=== PATIENT | female | born 1940 | race Caucasian/White ===

== ENCOUNTER 2023-11-25 17:20 | Inpatient (IN) | payer OTHER, SELFPAY ==
[2023-11-25] VITALS (14 sets, daily range): BP systolic 92–145; BP diastolic 64–97; BMI 21.3
--- NOTE | 2023-11-25 14:45 | ED.GENMED ---
History of Present Illness
General
Chief Complaint: Fainting/Passed Out
Source: patient
Exam Limitations: none
Time Seen by Provider: 11/25/23 14:29
History of Present Illness
History of Present Illness:
83-year-old female woke up on the bathroom floor 2 nights ago, about 36 hours ago. She had been sleeping prior. She does not recall the event. She was diagnosed with COVID 4 days ago. Mostly just with runny nose. No fever no chest pain no
shortness of breath. Patient hit her face. She cannot get into see the regular physician because of her COVID. Initially she was evaluated by PA who stated everything was okay. She then saw some the nurse today who was concerned about her head
injury on Eliquis and stated she should be evaluated. She complains of some mild facial pain. She has no neck pain she has mild nausea she has no chest pain or shortness of breath. She has a history of PAF. She states she will go into it 2-3
times per year. She like this episode after she started while coming to the ER. She does not think she was in atrial fibrillation when this event occurred. She has had no further episodes of syncope. Her blood pressure was running low yesterday.
She has not taken her Eliquis for the last 36 hours.
Review of Systems
Review of Systems
All Other Systems: Not applicable
Constitutional: Denies fever
Respiratory: Reports no symptoms
Cardiac: Denies chest pain
ABD/GI: Reports no symptoms
Phy Exam
Physical Exam
Physical Exam:
GENERAL: Alert and oriented in no apparent distress. Initially was walking around the room changing.
EYE: Orbits normal. Ecchymosis to the bridge of the nose and suborbital bilaterally. Orbits themselves are normal.
NECK: Supple, nontender
ENT: Pharynx without erythema
CARDIAC: Irregular irregular. Tachycardic
LUNGS: Clear breath sounds,normal
ABDOMEN: Soft, without focal tenderness or distention
NEUROLOGICAL: Alert and oriented , grossly non-focal
SKIN: Warm and dry, no rash or lesion, no discoloration, skin intact.
MUSCULOSKELETAL: No edema,no deformity.Good color
PSYCH: Normal and appropriate interaction.
Course
Orders/Labs/Results
Orders:
Orders
11/25/23 14:05
ECG [Electrocardiogram (*1)] Urgent
Reason for Study: Syncope
EKG- Treatment ONCE
11/25/23 14:44
CT Cervical Spine W/o Iv Contr Urgent
Comment:
Reason For Exam: trauma
CT Facial Bones W/o Iv Contras Urgent
Comment:
Reason For Exam: trauma
CT Head W/o Iv Contrast Urgent
Comment:
Reason For Exam: trauma
Cardiac Monitoring- Treatment ONCE
0.9% Sodium Chloride 250 ml [Nss] 250 ml IV BOLUS
11/25/23 14:45
Cardiac Monitoring- Treatment ONCE
11/25/23 14:48
Basic Metabolic Panel Urgent
Complete Blood Count/With Diff Urgent
11/25/23 16:29
Diltiazem 125 mg/125 ml Nss [Cardizem] 125 mg in 125 ml IV NOW
Initial dose in mg/hr, then titrate:: 5
Titrate to keep:: Heart rate 80-100 bpm
Titrate by mg/hr:: 5 mg/hr
Frequency of titrations (minutes):: 15
Maximum dose in mg/hr:: 15
Diltiazem HCl [Cardizem] 5 mg IV NOW STA
11/25/23 16:49
Admit/Transfer Patient As Directed
Co-Sign Provider:
Level of Care: Inpatient admission
Assign to:: IMU- Intermediate Care
Physician / Group: rickie
Diagnosis: afib rvr
Reason for Hospitalization: afib rvr
Expected length of stay greater than two midnights?: Yes
ELOS- Estimated Length of Stay in days: 2
I certify the patient meets the requirements for IP care: Yes
PRN Pain Medication Management As Directed
May give lesser potent ordered pain med per pt: Yes
preference::
Protocol:: Medication orders for pain may be administered in a
manner that supports deferring to patient preference
when the pt is:
- Requesting an ordered lesser potent pain medication.
Least to most potent pain medications are defined
as: acetaminophen < NSAID < tramadol < opioids
(morphine, oxycodone, hydromorphone).
- Requesting a lesser dose of the same medication IF
ORDERED.
- Requesting a less intrusive route of administration
if both routes are prescribed by the provider (PO <
IV).
11/25/23 16:50
Code Status As Directed
Resuscitation Status: Full Code
Abnormal Lab Results
11/25/23
14:48
WBC 3.5 L 10^3/uL
(4.8-10.8)
MPV 10.9 H fL
(7.4-10.4)
Monocytes % 11.5 H %
(1.7-9.3)
BUN 22 H mg/dl
(7-17)
Glucose 107 H mg/dl
(70-99)
11/25/23 14:48
11/25/23 14:48
Vital Signs
Initial and Last Documented VS:
Initial Vital Signs
Temp Pulse Resp BP Pulse Ox
98.7 F 131 20 145/97 98
11/25/23 13:59 11/25/23 13:59 11/25/23 13:59 11/25/23 13:59 11/25/23 13:59
Last Documented Vital Signs
Temp Pulse Resp BP Pulse Ox
98.7 F 137 17 128/72 95
11/25/23 13:59 11/25/23 17:45 11/25/23 17:45 11/25/23 17:00 11/25/23 16:30
MDM/Problems Addressed
Differential Diagnosis Includes:
From a trauma standpoint patient is clinically stable. We will CT the head facial bones and cervical spine. From a COVID standpoint she is stable. She has no shortness of breath no hypoxia no severe weakness. As for the syncopal episode.
Unclear etiology. Patient does not recall the event. She was running low blood pressures yesterday. However she feels her atrial fibrillation likely happened today. We will give fluids. Possible rate control
*Pulse Oximetry
Patient hypoxic: no
*EKG
Interpreted by ED Provider?: Yes
Interpretation: abnormal
Comparison EKG: no comparison EKG present
Heart Rate: 136
Rate: tachycardiac
Rhythm: a-fib
[place]: normal axis
Interval: normal interval
QRS Pattern: right bundle branch block
Ischemia: non-specific ST changes
*Plastics Design Engineer Interpretation
Rate: tachycardiac
Interpretation: abnormal
Heart Rate: 140
Rhythm: a-fib
*Critical Care Note
Total Time (30-74mins, 75-104mins- exclusive of procedures): 15
Update Note
Update Note:
Syncope/A-fib RVR/COVID. Warrants admission rate control cardiac monitoring
ED Attending Note
-
Portions of this chart may have been created with voice recognition software.� Occasional wrong word or��sound alike� substitutions may have occurred due to the inherent limitations of voice recognition software.
Discharge Plan
Departure
Patient Disposition: Admit
Date of Disposition: 11/25/23
Time of Disposition: 16:31
Presentation/result/management discussed w/ accepting MD/DO: Hospitalist
Discharge Problem:
Syncope, Facial trauma/nasal fracture, Atrial fibrillation/RVR, COVID infection
Interventions
Interventions:
*Risk Screen - Suicide Last Done: 11/25/23 14:48
*General Assessment Last Done: 11/25/23 14:48
*Neglect/Abuse Screening Last Done: 11/25/23 14:48
*ED COVID-19 Vaccine History Last Done: 11/25/23 14:48
ED- Cardiac Assessment Last Done: 11/25/23 14:48
ED- Neurological Assessment Last Done: 11/25/23 14:48
[2023-11-25] MEDS: NSS 250 IV (15:01)
[2023-11-25 15:12] LABS: % Basophils 0.3 % (0-2); % Eosinophils 0.9 % (0-6); % Immature Granulocytes 0.3 % (0-0.5); % Monocytes 11.5 % (1.7-9.3); Absolute Lymphocytes 1.2 10^3/uL (1.2-3.4); Absolute Monocytes 0.4 10^3/uL (0.1-0.6); Absolute Neutrophils 1.9 10^3/uL (1.4-6.5); Hematocrit 37.4 % (37.0-47.0); Mean Corp Hgb Conc. 34.8 g/dL (33.0-37.0); Mean Corpuscular Hgb 29.6 pg (27.0-31.0); Mean Corpuscular Volume 85.2 fL (81.0-99.0); Mean Platelet Volume 10.9 fL (7.4-10.4); Nucleated Red Blood Cells % 0 %; Platelet Count 145 10^3/uL (130-400); Red Blood Cell Count 4.39 10^6/uL (4.20-5.40); Red Cell Dist. Width 13.2 % (11.5-14.5); White Blood Cell Count 3.5 10^3/uL (4.8-10.8)
[2023-11-25 16:10] LABS: Blood Urea Nitrogen 22 mg/dl (7-17); Calcium 9.7 mg/dl (8.4-10.2); Carbon Dioxide 24 mmol/L (22-30); Chloride 103 mmol/L (98-107); Estimated Creatinine Clearance 47 ml/min; Glucose 107 mg/dl (70-99); Potassium 4.2 mmol/L (3.5-5.1); Sodium 141 mmol/L (135-145); eGFR > 60.00
[2023-11-25] MEDS: CARDIZEM 5 MG IV (16:40)
[2023-11-25] MEDS: CARDIZEM 125 IV (16:40)
--- NOTE | 2023-11-25 16:51 | HPS.HSE ---
Family Physician
-
Family Physician: Dony Templeton
Chief Complaint
-
syncope
History of Present Illness
83-year-old female past medical history of osteoporosis, hypercholesteremia, prediabetes, paroxysmal atrial fibrillation on anticoagulation, presenting with syncopal episode. She woke up in the bathroom floor 2 nights ago. She has dizziness
currently. She does not recall the event but hit her face. She was diagnosed with COVID 4 days ago after she was having runny nose. She denies any shortness of breath, chest pain, cough, fevers or chills. She has had decreased oral intake over
the past 4 days.
She saw a nurse today who was concerned about her head injury while on Eliquis and told her to come to the emergency room. Patient does complain of some mild facial pain. She denies neck pain.
She denies nausea vomiting or diarrhea.
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 Mancia at [place].
She drinks alcohol few times a week. She denies smoking.
Medical History
Past Medical History
Past Medical History: Reports Other ( osteoporosis, hypercholesteremia, prediabetes, paroxysmal atrial fibrillation on anticoagulation)
Past Surgical History: Reports Orthopedic
Social History
Tobacco: Non-smoker
Alcohol: Occasional
Drug: None
Family History
Family History: Not pertinent
Allergies / Home Medications
Allergies reflects when Allergies were last updated in [facility].
Home Medications with original date entered in [facility]
Allergy/Medication List:
Allergies
Allergy/AdvReac Type Severity Reaction Status Date / Time
No Known Allergies Allergy Unverified 11/25/23 14:03
Review of Systems
-
History Source: Patient
A 12 point ROS was completed and negative except as noted: Yes
Constitutional: Reports No Symptoms
EENT: Reports See HPI
Respiratory: Reports No Symptoms
Cardiac: Reports No Symptoms
Abdomen/GI: Reports No Symptoms
: Reports No Symptoms
Musculoskeletal: Reports No Symptoms
Skin: Reports No Symptoms
Neurological: Reports No Symptoms
Endocrine: Reports No Symptoms
Hematologic/Lymphatic: Reports No Symptoms
Psych: Reports No Symptoms
Physical Exam
Vital Signs
Vital Signs
Temp Pulse Resp BP Pulse Ox
98.7 F 135 20 111/90 95
11/25/23 13:59 11/25/23 16:40 11/25/23 15:34 11/25/23 16:40 11/25/23 15:15
Physical Exam
General: Well Developed, Well Nourished and No Apparent Distress
HEENT: NormoCephalic, Moist mucous membranes and Atraumatic
Respiratory: Clear
Cardiac: S1/S2, Irregular Rhythm and Tachycardia; No Murmur or Rub
GI: Soft, Non Tender, Non Distended and Normal Bowel Sounds; No Organomegaly
Rectal: Deferred by Provider
Musculoskeletal: No Clubbing, No Cyanosis and No Edema
Skin: No Rash
Neuro: Nonfocal/grossly intact
Laboratory Results
-
11/25/23 14:48
11/25/23 14:48
Data Reviewed
-
Lab Data: Labs Reviewed by me
Old Records: Reviewed
Impression/Plan
-
IMPRESSION:
PLAN:
# Atrial fibrillation with RVR secondary to COVID/hypovolemia
# Syncope secondary to A-fib/hypovolemia
-EKG shows atrial fibrillation with RVR with right bundle branch block, heart rate of 136
-IV fluids given
-Cardizem drip
-Check echo
-Cardiology consulted
# Nondisplaced anterior nasal bone fracture
-CT head shows no acute abnormality
-CT C-spine negative
-CT facial bones shows small volume layering hyperdense fluid within the posterior aspect of the right maxillary sinus likely trace blood products
-Hold Eliquis
-Outpatient follow-up with ENT
# COVID infection
-Today is day 5 of symptoms
-Not hypoxic or symptomatic
Osteoporosis
Hypercholesterolemia
Prediabetes
Full code
DVT prophylaxis�SCDs
Regular diet
--- NOTE | 2023-11-25 18:57 | PTCARENOTE ---
Received patient on admission from ED via stretcher with cardizem infusing at 10mg/min. HRIR, afib on the monitor 80s- low 100s. Cardizem infusion not listed on admitting orders. [place] text sent to Sky Monson as this was the person who
entered admission orders. Text was sent at 18:48pm and read. Patient assisted to commode x1 with c/o dizziness. She denied dizziness when ambulating from stretcher to bed. Report given to oncoming shift; made aware of need for cardizem order.
Patient instructed not to get OOB unless staff present in room; reviewed call [facility] system. Patient verbalized understanding; no questions at this time.
--- NOTE | 2023-11-25 20:00 | PTCARENOTE ---
Patient received in bed, AAOx3, complaints of dizziness. Gait steady. Afib on monitor, no edema noted. Lungs clear, on room air. Denies SOB. Abdomen soft. Bleeding hemorrhoids noted. Voiding. #20 g in right FA with Cardizem gtt infusing at 10
mg/hr. Plan of care discussed, call [facility] within reach
[2023-11-25] MEDS: NSS 1000 IV (20:15)
[2023-11-25] MEDS: CRESTOR 10 MG PO (22:22)
[2023-11-25] MEDS: DESYREL 50 MG PO (22:24)
--- NOTE | 2023-11-25 22:33 | PTCARENOTE ---
carizem gtt infusing at 5 mg/hr, patient converted to NSR
[2023-11-25] MEDS: TOPROL XL 100 MG PO (23:33)
[2023-11-26] VITALS (11 sets, daily range): BP systolic 85–158; BP diastolic 50–84
[2023-11-26] MEDS: CARDIZEM 125 IV (01:59)
[2023-11-26] MEDS: TYLENOL PO (05:19)
[2023-11-26] MEDS: TYLENOL 650 MG PO (05:23)
[2023-11-26 05:41] LABS: % Basophils 0.3 % (0-2); % Eosinophils 1.4 % (0-6); % Immature Granulocytes 0.3 % (0-0.5); % Lymphocytes 44.3 % (20.5-51.1); % Monocytes 11.4 % (1.7-9.3); % Neutrophils 42.3 % (42.2-75.2); Absolute Eosinophils 0.1 10^3/uL (0-0.7); Absolute Lymphocytes 1.6 10^3/uL (1.2-3.4); Absolute Monocytes 0.4 10^3/uL (0.1-0.6); Absolute Neutrophils 1.5 10^3/uL (1.4-6.5); Hematocrit 37.2 % (37.0-47.0); Hemoglobin 12.5 g/dL (12.0-16.0); Mean Corp Hgb Conc. 33.6 g/dL (33.0-37.0); Mean Corpuscular Hgb 29.3 pg (27.0-31.0); Mean Corpuscular Volume 87.3 fL (81.0-99.0); Mean Platelet Volume 10.4 fL (7.4-10.4); Nucleated Red Blood Cells % 0 %; Platelet Count 138 10^3/uL (130-400); Red Blood Cell Count 4.26 10^6/uL (4.20-5.40); Red Cell Dist. Width 13.2 % (11.5-14.5); White Blood Cell Count 3.5 10^3/uL (4.8-10.8)
--- NOTE | 2023-11-26 05:51 | PTCARENOTE ---
Patient complaining of headache 3/10, prn tylenol given. Patient oriented x3, OOB, no changes in assessment. Notified samson STRONG, continuing to monitor
[2023-11-26 06:04] LABS: ALT (SGPT) 19 U/L (0-35); AST (SGOT) 27 U/L (14-36); Albumin 3.6 g/dl (3.5-5.0); Alkaline Phosphatase 33 U/L (38-126); Blood Urea Nitrogen 18 mg/dl (7-17); Calcium 8.7 mg/dl (8.4-10.2); Carbon Dioxide 26 mmol/L (22-30); Chloride 104 mmol/L (98-107); Estimated Creatinine Clearance 47 ml/min; Glucose 96 mg/dl (70-99); Potassium 4.1 mmol/L (3.5-5.1); Sodium 143 mmol/L (135-145); Total Bilirubin 0.6 mg/dl (0.2-1.3); Total Protein 5.9 g/dl (6.3-8.2); eGFR > 60.00
[2023-11-26] MEDS: COZAAR 100 MG PO (08:06)
[2023-11-26] MEDS: VITAMIN D3 (cholecalciferol) 50 MCG PO (08:07)
--- NOTE | 2023-11-26 09:09 | CON.CAR ---
Addendum entered and electronically signed by Js Torre MD 11/26/23 10:36:
Note : patient was on IV cardizem when she had afib but is back in NSR
stop Cardizem and monitor HR and BP
Original Note:
Consultation
Consultation Request
Date/Time Consultation Requested: 11/26/2023 8:30 AM
Date/Time Consultation Performed: 11/26/2023 9 AM
Requesting Provider: Hospitalist
Performing Provider: Dr. Torre
Reason for Consultation: Syncope
Medical History
-
History of Present Illness:
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
83-year-old woman with past medical history noted below including paroxysmal atrial fibrillation and chronic anticoagulation who presented with syncope. Of note patient was diagnosed with COVID 4 days prior to presentation she had had some runny
nose but no complaints of shortness of breath or fever. In addition no chest pain palpitations or heart racing. Patient states that on 11/20/2023 she had a runny nose and was diagnosed with COVID. She also had some decreased oral intake
and decreased appetite otherwise was feeling okay. She states that on Wednesday night she went to bed and then in the around 2 AM on Wednesday she found herself on the floor of the bathroom next to the toilet with bleeding from her nose. She does
not recall getting out of bed and does not recall feeling lightheaded or dizzy circumstances appeared that the patient had recently gone to the bathroom and fallen off the toilet with a syncopal episode. 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 The next day she states she was evaluated by a nurse practitioner and no abnormalities were noted. She does state that at home when she took her blood pressure 1 point her systolic was 88
but she was not having any lightheadedness or dizziness. Ultimately she was concerned because she knew she had had some trauma and she is on anticoagulation so she came to the ER. She thinks she went into A-fib shortly after she went to the ER
initial ECG showed A-fib with RVR but then patient subsequently converted back to sinus rhythm. There was no significant conversion pause.
Patient has history of PAF and says she has A-fib about 3 times a year episodes last 20 minutes to 1 hour she will feel some palpitations fluttering and racing.
No recent issues with lightheadedness or near syncopal episodes she remained but is having 1 episode of syncope in the bathroom about 10 years ago.
Patient currently feeling fine no complaints of lightheadedness or dizziness and she feels her appetite is better and she is eating well.
Past medical history
Paroxysmal atrial fibrillation
Chronic anticoagulation
Prediabetes
Hypercholesterolemia
Osteoporosis
Past Medical History
Past Medical History: Other (As noted)
Social History
Tobacco: Non-Smoker
Family History
Family History: Early CAD (Negative)
Allergies / Home Medications
Allergy/AdvReac Type Severity Reaction Status Date / Time
No Known Allergies Allergy Unverified 11/25/23 14:03
�Medication �Instructions �Recorded �Confirmed �Type
apixaban 5 mg tablet (Eliquis) 5 mg PO BID Blood Clot 11/25/23 11/25/23 History
Prevention/Tx
cholecalciferol (vitamin D3) 50 50 mcg PO DAILY Supplement 11/25/23 11/25/23 History
mcg (2,000 unit) tablet (Vitamin
D3)
losartan 100 mg tablet 100 mg PO DAILY HIGH BLOOD 11/25/23 11/25/23 History
metoprolol succinate 100 mg 100 mg PO HS Heart 11/25/23 11/25/23 History
tablet,extended release 24 hr Disease/Condition
polyethylene glycol 3350 17 gram 8.5 g PO DAILYPRN PRN constipation 11/25/23 11/25/23 History
oral powder packet (Miralax)
rosuvastatin 10 mg tablet 10 mg PO HS High Cholesterol 11/25/23 11/25/23 History
trazodone 50 mg tablet 50 mg PO HS Sleep 11/25/23 11/25/23 History
Review of Systems
-
All other systems: Negative unless noted
Physical Exam
Vital Signs
Temp Pulse Resp BP Pulse Ox
97.6 F 64 14 110/66 93
11/26/23 08:12 11/26/23 08:06 11/26/23 08:00 11/26/23 08:06 11/26/23 08:00
Lab Results
11/26/23 05:14
11/26/23 05:14
Physical Exam
General: Well Developed, Well Nourished and No Apparent Distress
HEENT: Normocephalic, Anicteric and Moist Mucous Membranes
Respiratory: Clear and Wheezes
Cardiac: Regular Rhythm
GI: Soft, Non Tender and Non Distended
Musculoskeletal: No Clubbing, No Cyanosis and No Edema
Neuro: Awake and Alert
Hematologic/Lymphatic: No Lymphadenopathy
Psych: Calm
Impression / Plan
-
Syncope. Exact etiology unclear. With episodes occurring in the bathroom as described above it is possible patient had a vagal episode and could have been a combination of factors adding to syncope including COVID, poor intake and antihypertensive
medications. It sounds as if patient was having some lower blood pressures the day following her syncopal episode and she has also had some labile blood pressure by her report. She has had some fluctuations in blood pressure while in the hospital
with some systolics in the 90s but otherwise blood pressures have been in the normal range. Suspect syncope is likely related to combination of lower blood pressures described above and possible vagal episode after going to the bathroom however
this patient does have some conduction disease with right bundle branch block and is 83 years old so the possibility of bradycardia arrhythmia is also a consideration.
-Hold losartan to allow blood pressure to be a bit higher
-Can continue metoprolol for additional treatment of PAF
-Monitor on telemetry
-Echocardiogram
-If blood pressures and rhythm remained stable then would recommend outpatient 2-week threat monitoring analyst. This can be done through her primary rubber covering machine operator Dr. Ismael Calvin
.
PAF.
-Prior history of PAF. Was briefly in A-fib on presentation now back in sinus
-Continue metoprolol
-Resume Eliquis when primary team feels it is safe
.
COVID-19. COVID-positive 11/19/2026. Respiratory status stable. Management directed by primary team
Data Reviewed
-
EKG: Report Reviewed by me
Radiology: Report Reviewed by me
Medical Tests (Nuc Med, Echo etc): Report Reviewed by me
Labs: Labs Reviewed by me
--- NOTE | 2023-11-26 10:26 | W.PN.HOSP.TC ---
Today's Communication/Plan
-
Repeat head CT
off Cardizem drip
observe overnight
Hold BP meds - losartan
Resume Eliquis
continue metoprolol
Assessment / Plan
Assessment / Plan
Impression
Atrial fibrillation with RVR
Syncope
Nondisplaced anterior nasal bone fracture
Active COVID infection
Osteoporosis
Hyperlipidemia
Prediabetes
Assessment and plan
Atrial fibrillation with RVR
Cardiology following
Patient converted to sinus rhythm.
Heart rate is between 60-70
Cardizem drip was stopped
Continue metoprolol for rate control
Will observe the patient overnight off the drip
Recommended OP 2 week alarm security or surveillance monitor.
Will resume Eliquis.
Downgrade to the floors
Syncope
Suspect due to low blood pressure
Hold blood pressure medication-losartan
Continue to monitor BP
Continue IV fluids if needed
Repeat head CT due to new vision changes
Nondisplaced anterior nasal bone fracture
CT facial bones shows small volume layering hyperdense fluid within the posterior aspect of the right maxillary sinus likely trace blood products
Head CT negative
Eliquis held, on SCD
COVID infection
On day 5-asymptomatic
Not hypoxic, on room air.
Hyperlipidemia
Continue home medication-rosuvastatin
Full code
DVT prophylaxis- resume Eliquis
Regular diet
Anticipated Discharge: Within 24 hours
Subjective/Interval History
-
Date of Service: November 26, 2023
Patient c/o headaches, with new blurry vision, denies diplopia. She states that 'she is unable to read the writing on yogurt box' .
Objective Data
-
Labs:
Laboratory Results
11/26/23
05:14
WBC 3.5 L
Hgb 12.5
Hct 37.2
Plt Count 138
Sodium 143
Potassium 4.1
Chloride 104
Carbon Dioxide 26
BUN 18 H
Creatinine 0.8
Glucose 96
Calcium 8.7
Total Bilirubin 0.6
AST 27
ALT 19
Alkaline Phosphatase 33 L
Vital Signs:
Vital Signs
Temp Pulse Resp BP Pulse Ox
97.6 F 64 14 110/66 93
11/26/23 08:12 11/26/23 08:06 11/26/23 08:00 11/26/23 08:06 11/26/23 08:00
I&O
11/25/23 11/26/23 11/27/23
06:59 06:59 06:59
Intake Total 900 / 900
Balance 900 / 900
Review of Systems
-
History Source: Patient
Neuro: Reports Headache
Physical Exam
-
General: Comfortable and Conversant
HEENT: Normocephalic, Atraumatic and PERRLA
Respiratory: Clear to Auscultation
Cardiac: Irregular Rhythm and Murmur (systolic on left upper sternal border)
GI: Soft, Nontender and Nondistended
Musculoskeletal: No Edema
Neuro: AO x 3
Data Reviewed
-
Labs: Labs Reviewed by me and Discussed with Physician
[2023-11-26] MEDS: NSS 1000 IV (10:43)
--- NOTE | 2023-11-26 15:32 | CM ---
Patient from [facility] with Dx Atrial fibrillation with RVR, Syncope, Nondisplaced anterior nasal bone fracture, COVID infection. Covid + 11/20/23. Room air. Receiving IVF. CT Head today.
Spoke with patient who resides with her in an apartment at [facility].
The patient has been independent in ADLs and ambulation.
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
The patient denies any current weakness with her mobility due to Covid.
The patient has no DME.
No prior VN or SNF.
PCP - Renetta Steen
Pharmacy - [facility]
The patient says her has 24 hr caregivers and her daughter Florentin from [facility] is staying with him while she is here.
Offered VN and patient declined.
No CM d/c needs identified.
Plan home.
--- NOTE | 2023-11-26 15:38 | PTCARENOTE ---
received patient from day shift. Patient stated she was having slight headaches and blurry vision to RN and resident while in the room. Repeat head CT ordered and no significant changes were seen on scan. Patient is off Cardizem drip and IV fluids.
Patient stated she wants to go home today. Notified physician and planning for discharge this evening. Continuing to monitor patient.
[2023-11-26] MEDS: ELIQUIS 2.5 MG PO (17:12)
--- NOTE | 2023-11-26 17:17 | W.DCSUMMARY ---
Documented by User: Ebony Thurman MD, Resident 11/26/23 18:12
Discharge Summary
Discharge Data
Date of Admission: 11/25/23
Date of Discharge: 11/26/23
-
Pending Results: No
Hospital Course
Discharging Physician : Dr Ebony Thurman, Dr Derrick Portillo
Disposition : [facility]
Primary care physician : Dony Templeton MD
Principal Discharge diagnosis :
Atrial fibrillation with RVR
Syncope
Nondisplaced anterior nasal bone fracture
Active COVID infection
Chronic Discharge diagnosis :
Atrial fibrillation with RVR
Osteoporosis
Hyperlipidemia
Prediabetes
Hospital Course :
83-year-old female past medical history of osteoporosis, hypercholesteremia, prediabetes, paroxysmal atrial fibrillation on Eliquis, presenting with syncopal episode, hitting her face. The event took place two days ago and she was unable to recall
about the fall. On physical exam there was presence ecchymosis to the bridge of the nose and suborbital bilaterally. Positive for covid in ED, not hypoxic. CT head and cervical spine was ordered in the ED which was negative for a hemorrhage/bleed.
CT facial bone showed nondisplaced anterior nasal bone fracture with hyperdense fluid and likely some trace blood. Eliquis was held and she was switched to sequential compression device. Patient was hemodynamically stable except for irregular HR.
EKG was done which showed Atrial fibrillation with RVR. Cardiology was consulted and patient was started on Cardizem drip. Patient was back to normal sinus rhythm in a few hours.
Overnight patient's BP was hypotensive but hemodynamically stable. Presuming the syncope could be due to decrease in her BP , we held all BP medications. Continued metoprolol for rate control.
On the second day of hospitalization, patient reported of blurry vision which was new, as she was not able to read the writing on her yogurt box. She denied diplopia. Repeat head CT was the same as the previous one, no new changes. Echocardiogram
showed LVEF 60-65%, no concerning findings.
On the day of discharge, vitals are stable. She is lying comfortable, conversant. Recommended outpatient two weeks teletypesetter monitor. Patient will continue her routine home medication. Advised patient to take half the dose of losartan until return to
[facility] for follow up. Advised to continue monitor Bp at home.
Important imaging findings :
Echocardiogram 11/25/22
Normal left ventricular size, wall thickness and systolic function. LV ejection fraction is 60-65% . Mild aortic regurgitation.No prior study available for comparison.
CT facial bones 11/24/22
Nondisplaced anterior nasal bone fracture. There is small volume layering hyperdense fluid within the posterior aspect of the right maxillary sinus, likely trace blood products.
Head CT 11/24/22
No acute intracranial abnormality noted.
Head CT repeat 11/25/22
No significant change. No acute intracranial abnormality identified.
Old benign calcified left frontal meningioma. Cavernous sinus prominence as above, likely related to vascular structures but not particularly well evaluated on noncontrast exam.
Procedure findings : none
Discharge Plan
-
Patient Disposition: Assisted Living
Discharge Diagnosis/Procedures: Atrial fibrillation with RVR
Syncope
Nondisplaced anterior nasal bone fracture
Active COVID infection
Condition: Good
Diet: Diabetic, Carb Controlled
Activity: As tolerated
Driving Restrictions: As prior to admission
Bathing Restrictions: None
Referrals:
Dony Templeton MD [Family Provider] -
Additional Discharge Medication Instructions: Take Losartan half a tablet until cardiology follow up outpatient. If you see an increase in her BP then you can take the whole tablet.
Please monitor blood pressure at home.
Prescriptions:
Continued
trazodone 50 mg Tablet
50 mg PO HS
polyethylene glycol 3350 [Miralax] 17 gram Powder In Packet
8.5 g PO DAILYPRN PRN (Reason: constipation)
metoprolol succinate 100 mg Tablet Extended Release 24 Hr
100 mg PO HS
losartan 100 mg Tablet
100 mg PO DAILY
rosuvastatin 10 mg Tablet
10 mg PO HS
cholecalciferol (vitamin D3) [Vitamin D3] 50 mcg (2,000 unit) Tablet
50 mcg PO DAILY
Eliquis 5 mg Tablet
5 mg PO BID
Patient Comments:
11/25/23: Patient normally takes eliquis, but stopped taking it since 2 days ago due to possibility of brain bleed.
Discharge Orders:
Discharge Patient (As Directed); Ordered 11/26/23
Ordered By: Ebony Thurman
Discharge Date and Time
Print Language: SUDANESE

Documented by User: Derrick Portillo DO 11/26/23 18:23
Discharge Summary
Discharge Data
Date of Admission: 11/25/23
Date of Discharge: 11/26/23
Discharge Plan
-
Patient Disposition: Assisted Living
Discharge Diagnosis/Procedures: Atrial fibrillation with RVR
Syncope
Nondisplaced anterior nasal bone fracture
Active COVID infection
Condition: Good
Diet: Diabetic, Carb Controlled
Activity: As tolerated
Driving Restrictions: As prior to admission
Bathing Restrictions: None
Referrals:
Dony Templeton MD [Family Provider] -
Additional Discharge Medication Instructions: Take Losartan half a tablet until cardiology follow up outpatient. If you see an increase in her BP then you can take the whole tablet.
Please monitor blood pressure at home.
Prescriptions:
Continued
trazodone 50 mg Tablet
50 mg PO HS
polyethylene glycol 3350 [Miralax] 17 gram Powder In Packet
8.5 g PO DAILYPRN PRN (Reason: constipation)
metoprolol succinate 100 mg Tablet Extended Release 24 Hr
100 mg PO HS
losartan 100 mg Tablet
100 mg PO DAILY
rosuvastatin 10 mg Tablet
10 mg PO HS
cholecalciferol (vitamin D3) [Vitamin D3] 50 mcg (2,000 unit) Tablet
50 mcg PO DAILY
Eliquis 5 mg Tablet
5 mg PO BID
Patient Comments:
11/25/23: Patient normally takes eliquis, but stopped taking it since 2 days ago due to possibility of brain bleed.
Discharge Orders:
Discharge Patient (As Directed); Ordered 11/26/23
Ordered By: Ebony Thurman
Discharge Date and Time
Print Language: SUDANESE
--- NOTE | 2023-11-26 19:00 | PTCARENOTE ---
patient discharged to home which is [facility]. IV taken out and off monitor. Discharge instructions given.
== END 2023-11-26 19:19 | disposition home or self-care (01) | DRG 308 ==
LOC: IMU 17:20
PROVIDERS: Student in an Organized Health Care Education/Training Program; ADMITTING PHYSICIAN Hospitalist; ATTENDING PHYSICIAN Internal Medicine; CONSULT PHYSICIAN Internal Medicine Cardiovascular Disease; EMERGENCY PHYSICIAN Emergency Medicine; FAMILY PHYSICIAN Internal Medicine Geriatric Medicine
DX: I48.0 Paroxysmal atrial fibrillation (principal); U07.1 COVID-19; R55 Syncope and collapse; M81.0 Age-related osteoporosis without current pathological fracture; E78.00 Pure hypercholesterolemia, unspecified; R73.03 Prediabetes; S02.2XXA Fracture of nasal bones, initial encounter for closed fracture; W18.39XA Other fall on same level, initial encounter; Z79.01 Long term (current) use of anticoagulants
CPT/HCPCS: 70450; 70486; 72125; 80048; 80053; 85025; 93005; 93306; 96361; 96374; 99285

== ENCOUNTER 2024-07-24 11:01 | Emergency (ER) | payer OTHER, SELFPAY ==
[2024-07-24] VITALS (25 sets, daily range): BP systolic 84–120; BP diastolic 60–107
[2024-07-24 11:41] LABS: % Basophils 0.3 % (0-2); % Eosinophils 0.2 % (0-6); % Immature Granulocytes 0.5 % (0-0.5); % Lymphocytes 18.4 % (20.5-51.1); % Monocytes 13.9 % (1.7-9.3); % Neutrophils 66.7 % (42.2-75.2); Absolute Lymphocytes 1.2 10^3/uL (1.2-3.4); Absolute Monocytes 0.9 10^3/uL (0.1-0.6); Absolute Neutrophils 4.2 10^3/uL (1.4-6.5); Hematocrit 36.3 % (37.0-47.0); Hemoglobin 11.8 g/dL (12.0-16.0); Mean Corp Hgb Conc. 32.5 g/dL (33.0-37.0); Mean Corpuscular Hgb 29.1 pg (27.0-31.0); Mean Corpuscular Volume 89.4 fL (81.0-99.0); Mean Platelet Volume 10.6 fL (7.4-10.4); Nucleated Red Blood Cells % 0 %; Platelet Count 170 10^3/uL (130-400); Red Blood Cell Count 4.06 10^6/uL (4.20-5.40); Red Cell Dist. Width 13.1 % (11.5-14.5); White Blood Cell Count 6.3 10^3/uL (4.8-10.8)
[2024-07-24 11:58] LABS: ALT (SGPT) 13 U/L (0-35); AST (SGOT) 18 U/L (14-36); Albumin 3.2 g/dl (3.5-5.0); Alkaline Phosphatase 36 U/L (38-126); Blood Urea Nitrogen 22 mg/dl (7-17); Calcium 8.7 mg/dl (8.4-10.2); Carbon Dioxide 27 mmol/L (22-30); Chloride 108 mmol/L (98-107); Estimated Creatinine Clearance 47 ml/min; Glucose 99 mg/dl (70-99); Magnesium 2.1 mg/dl (1.6-2.3); Potassium 4.2 mmol/L (3.5-5.1); Sodium 140 mmol/L (135-145); Total Bilirubin 1.1 mg/dl (0.2-1.3); Total Protein 5.5 g/dl (6.3-8.2); eGFR > 60.00
[2024-07-24 12:36] LABS: TSH Reflex To Free T4 1.14 uIU/ml (0.47-4.68)
--- NOTE | 2024-07-24 13:20 | ED.GENMED ---
History of Present Illness
General
Chief Complaint: Cardiac Symptoms
Source: patient
Time Seen by Provider: 07/24/24 12:49
History of Present Illness
History of Present Illness:
This patient is an 83-year-old female presents emergency department after developing atrial fibrillation approximately 7:30 AM today. Patient was last noted to be in A-fib in November 2023, she states she typically is not in A-fib. She is
compliant with her medications including her anticoagulation. She states that Wednesday evening she reached her and heard a 'pop' in the left buttock area. She noted continued disc particularly with movement which prompted her visit to the
Medical [facility] today. Incidentally, patient had a short-lived episode of feeling feverish with shakes last night which has fully resolved. At around 730 this morning she started to feel slightly lightheaded checked her watch and was noted to be in
A-fib. In the Medical Center she had a low blood pressure associated with dizziness and was referred to the emergency department. Patient denies chest pain or pressure, dyspnea, vomiting, bowel or bladder incontinence, perianal anesthesia, leg
swelling, palpitations, headache. She does have mild nausea. Otherwise she is complaints.
Past History
Past History
ED Past Medical History: Other (A-fib, hyperlipidemia, prediabetes, osteoporosis)
Social History
Tobacco: Non-smoker
Alcohol: None
Drug: None
Personal:
Living: assisted living
Phy Exam
Physical Exam
Physical Exam:
GENERAL: Alert , in no apparent distress
EYE: pupils equal and reactive
NECK: Supple, no significant adenopathy.
ENT: o/p clr, mmm.
CARDIAC: Irregularly irregular, tachycardic
LUNGS: Clear breath sounds bilaterally, no acute respiratory distress,
ABDOMEN: Soft, without focal tenderness, no r/g, no cvat
NEUROLOGICAL: Alert and oriented, no focal neuro deficits, 2+ patellar reflexes, motor 5 out of 5, sensory intact, range of motion preserved
SKIN: Warm and dry, skin intact.
MUSCULOSKELETAL: No edema, well perfused.
PSYCH: Normal and appropriate interaction.
Buttock back no bruising or swelling noted, no tenderness to palpation
Course
Orders/Labs/Results
Orders:
Orders
07/24/24 11:19
Electrocardiogram (*1) Urgent
Reason for Study: Chest Pain
EKG- Treatment ONCE
O2 Therapy [RESP] Urgent
Titrate/Wean O2 to maintain O2 sat greater than (%): 90
Special Instructions: Maintain sats >/=90%
07/24/24 11:28
Comprehensive Metabolic Panel Urgent
Magnesium Urgent
07/24/24 11:29
Complete Blood Count/With Diff Urgent
TSH Reflex To Free T4 Urgent
07/24/24 15:19
Propofol [Diprivan] 20 ml .ROUTE .STK-MED
07/24/24 15:51
0.9% Sodium Chloride 250 ml [Nss] 250 ml IV BOLUS
Diltiazem HCl [Cardizem] 10 mg IV NOW STA
07/24/24 16:00
Diltiazem 125 mg/125 ml Nss [Cardizem] 125 mg in 125 ml IV PER PROTOCOL
Currently infusing. Continue current dose and titrate:: Yes
Titrate to keep:: Heart rate 80-100 bpm
Titrate by mg/hr:: 5 mg/hr
Frequency of titrations (minutes):: 15
Maximum dose in mg/hr:: 15
07/24/24 16:57
PRN Pain Medication Management As Directed
May give lesser potent ordered pain med per pt: Yes
preference::
Protocol:: Medication orders for pain may be administered in a
manner that supports deferring to patient preference
when the pt is:
- Requesting an ordered lesser potent pain medication.
Least to most potent pain medications are defined
as: acetaminophen < NSAID < tramadol < opioids
(morphine, oxycodone, hydromorphone).
- Requesting a lesser dose of the same medication IF
ORDERED.
- Requesting a less intrusive route of administration
if both routes are prescribed by the provider (PO <
IV).
07/24/24 16:59
Code Status As Directed
Resuscitation Status: Full Code
07/24/24 17:01
CARDIOLOGY CONSULT Routine
Consulting Provider: Mauricio Rocha
Was physician already notified: Yes
07/24/24 17:20
EKG [Electrocardiogram (*1)] Urgent
Reason for Study: Atrial Fibrillation
EKG- Treatment ONCE
Abnormal Lab Results
07/24/24 07/24/24
11:28 11:29
RBC 4.06 L 10^6/uL
(4.20-5.40)
Hgb 11.8 L g/dL
(12.0-16.0)
Hct 36.3 L %
(37.0-47.0)
MCHC 32.5 L g/dL
(33.0-37.0)
MPV 10.6 H fL
(7.4-10.4)
Absolute Monos (auto) 0.9 H 10^3/uL
(0.1-0.6)
Lymphocytes % 18.4 L %
(20.5-51.1)
Monocytes % 13.9 H %
(1.7-9.3)
Chloride 108 H mmol/L
(98-107)
BUN 22 H mg/dl
(7-17)
Alkaline Phosphatase 36 L U/L
(38-126)
Total Protein 5.5 L g/dl
(6.3-8.2)
Albumin 3.2 L g/dl
(3.5-5.0)
07/24/24 11:29
07/24/24 11:28
Vital Signs
Initial and Last Documented VS:
Initial Vital Signs
BP
120/89
07/24/24 11:09
Last Documented Vital Signs
Temp Pulse Resp BP Pulse Ox
98.0 F 76 13 103/67 97
07/24/24 16:05 07/24/24 17:16 07/24/24 17:16 07/24/24 17:16 07/24/24 17:00
Procedures
Cardioversion
Indication:: Afib
Performed by:: Samir Hough
Synchronized?: Yes
Energy Used: 200 joules
Number of attempts: 3
Successful?: No
ASA Risk Score: Class II
Any reaction or bad outcome to prior sedation/anesthesia?: No history of a reaction
Sedation level to be attained: moderate
Chart and allergies reviewed: Yes
Patient reassessed prior to sedation: Yes
Time out completed at (validating right patient & procedure): 15:22
History of difficult intubation: No
Airway free of obstruction: Yes
Patient has a gag reflex: Yes
Patient is able to open mouth: Yes
Patient has no dentures: Yes
Patient has no loose teeth: Yes
Medication administered by Provider during Moderate Sedation: IV Propofol (mg)
Total dose administered: 30
Time drug administered: 15:23
Start Time: 15:23
Stop Time: 15:38
Update Note
Update Note:
Patient presents to the Emergency Department with ____dizziness, left buttock pain, presumed A-fib
Number and Complexity of Problems Addressed at the Encounter
� Chronic conditions affecting care:
� Acute Exacerbation and/or Progression of Chronic Illness:
� Differential Diagnosis includes: But not limited to A-fib with RVR, muscular strain, cauda equina, etc. etc. etc.
Amount and/or Complexity of Data to be Reviewed and Analyzed
� I performed an independent evaluation of and my interpretation is:
EKG: Read by me, atrial fibrillation with RVR, right bundle branch block, no acute ischemia
CT:
Xrays:
Laboratory Studies: Generally unremarkable, very minor abnormality noted without clinical significance, mild anemia
Other:
� Review of other/old records reveals: Patient was admitted with an episode of 8 and syncope November 2023.
� Clinical information was obtained by an independent historian: Paperwork from [employer] reviewed
� Prescriptions/Medications Considered but not given:
� Further testing considered but not performed:
Risk of Complications and/or Morbidity or Mortality of Patient Management
� Social determinants of health affecting care:
� Discussion with other providers (PCP, Hospitalists, Consultants, etc):
� Escalation of care including admission/observation vs risk of discharge considered: 3:01 PM patient remains in A-fib with RVR. I did discuss with her earlier the option for cardioversion especially given borderline hypotension
and difficulty managing her rate with meds. I then discussed with her electrical prospecting observer, he is aware of history physical vitals etc. here and is in agreement. His cell phone number is , I will call him if there is any other follow-up
otherwise patient will follow-up with electrical prospecting observer as an outpatient.
Risks and benefits discussed with patient, consent signed. Unfortunately procedure was not successful and patient remains in A-fib. Case discussed again with her electrical prospecting observer who agrees with recommendations for observation and rate control.
Difficult balance with bp and rate. Will finish IVF bolus and start cardizem, close montioring,. d/w hospitalsit.
5:30 PM approximately upon my reassessment patient noted to be what I suspect to be normal sinus rhythm on the monitor, repeat ECG confirms this. I updated the hospitalist. We will have patient stand up and walk around to confirm that she no
longer has symptoms even while upright, if so, she is a likely candidate for discharge with close follow-up which she is eager to do.
Just upon d/c, pt requesting muscle relax for buttock pain. I cautiously wrote for flexeril, limited dose, LONG d/w her re:r/b espec in context of DOAC use and being careful. She is in agreement/understands.
ED Attending Note
-
Portions of this chart may have been created with voice recognition software.� Occasional wrong word or��sound alike� substitutions may have occurred due to the inherent limitations of voice recognition software.
Discharge Plan
Departure
Patient Disposition: Home (Routine Discharge)
Date of Disposition: 07/24/24
Time of Disposition: 17:33
Patient with high blood pressure during this ER visit?: Yes
Condition: Good
Discharge Problem:
Atrial fibrillation
Instructions: Atrial fibrillation, BLOOD PRESSURE
Prescriptions:
New
cyclobenzaprine 5 mg tablet
5 mg PO TID PRN (Reason: spasm) Qty: 17 0RF
No Action
trazodone 50 mg Tablet
50 mg PO HS
polyethylene glycol 3350 [Miralax] 17 gram Powder In Packet
8.5 g PO DAILYPRN PRN (Reason: constipation)
metoprolol succinate 100 mg Tablet Extended Release 24 Hr
100 mg PO HS
losartan 100 mg Tablet
100 mg PO DAILY
rosuvastatin 10 mg Tablet
10 mg PO HS
cholecalciferol (vitamin D3) [Vitamin D3] 50 mcg (2,000 unit) Tablet
50 mcg PO DAILY
Eliquis 5 mg Tablet
5 mg PO BID
acetaminophen [Tylenol] 325 mg Tablet
650 mg PO Q6HPRN PRN (Reason: mild pain)
Prolia 60 mg/mL Syringe
60 mg SC [id number]
Referrals:
Renetta Lechuga MD [Family Provider] -
Activity Restrictions/Additional Instructions:
PLEASE FOLLOW UP WITH YOUR MINE DEPUTY PROMPTLY. IF YOU DEVELOP DIZZINESS, CHEST PAIN, PALPITATIONS, TROUBLE BREATHING, OR OTHER WORRISOME SIGNS, GO TO THE ER IMMEDIATELy!
Interventions
Interventions:
*Risk Screen - Suicide Last Done: 07/24/24 11:13
*General Assessment Last Done: 07/24/24 11:13
*Neglect/Abuse Screening Last Done: 07/24/24 11:13
*ED- Fall Risk Assessment Last Done: 07/24/24 11:13
*ED COVID-19 Vaccine History Last Done: 07/24/24 11:13
ED- Pulmonary Assessment Last Done: 07/24/24 11:32
ED- Cardiac Assessment Last Done: 07/24/24 11:32
Discharge Date and Time
Print Language: PALAUAN
[2024-07-24] MEDS: NSS 250 IV (16:17)
--- NOTE | 2024-07-24 16:32 | HPS.HSE ---
Family Physician
-
Family Physician: Renetta Lechuga
Chief Complaint
-
dizzy
History of Present Illness
83-year-old female past medical history for A-fib, hypertension presented to us with A-fib. Patient woke up with dizziness this morning. She checked her Apple Watch and noted she was in A-fib. She states that Wednesday evening she heard a 'pop' in
the left buttock area as she reached out to her to prevent falling. Since then she has been having left buttock pain and left upper extremities weakness. [facility] her left buttocks pain. She was noted in A-fib and
sent to the ER for further management. Patient denied any chest pain. Patient denied any headache. Denied short of breath, denied palpitation. Patient denied abdominal pain, nausea, vomiting or diarrhea. Patient denied dysuria hematuria.
EKG with A-fib with RVR. Attempted cardioversion with no success. Patient was noted hypotensive in ER as well. Her blood pressure improved with fluids. Admitted for further management
Medical History
Past Medical History
Past Medical History: Reports Other
Additional Past Medical History:
A-fib, hypertension, hyperlipidemia, osteoporosis
Past Surgical History: Reports Other
Additional Past Surgical History:
Carpal tunnel release
dequerains surgery
Social History
Tobacco: Non-smoker
Alcohol: None
Drug: None
Personal:
Living: With Family
Family History
Family History: Not pertinent
Allergies / Home Medications
Allergies reflects when Allergies were last updated in [employer].
Home Medications with original date entered in [employer]
Allergy/Medication List:
Allergies
Allergy/AdvReac Type Severity Reaction Status Date / Time
No Known Allergies Allergy Verified 07/24/24 11:11
Home Medications
apixaban 5 mg tablet (Eliquis) 5 mg PO BID Blood Clot Prevention/Tx 11/25/23
cholecalciferol (vitamin D3) 50 mcg (2,000 unit) tablet (Vitamin D3) 50 mcg PO DAILY Supplement 11/25/23
losartan 100 mg tablet 100 mg PO DAILY HIGH BLOOD 11/25/23
metoprolol succinate 100 mg tablet,extended release 24 hr 100 mg PO HS Heart Disease/Condition 11/25/23
polyethylene glycol 3350 17 gram oral powder packet (Miralax) 8.5 g PO DAILYPRN PRN constipation 11/25/23
rosuvastatin 10 mg tablet 10 mg PO HS High Cholesterol 11/25/23
trazodone 50 mg tablet 50 mg PO HS Sleep 11/25/23
Review of Systems
-
Constitutional: Reports No Symptoms
EENT: Reports No Symptoms
Respiratory: Reports No Symptoms
Cardiac: Reports No Symptoms
Abdomen/GI: Reports No Symptoms
: Reports No Symptoms
Musculoskeletal: Reports Other (Left lower extremities weak and left buttocks pain)
Skin: Reports No Symptoms
Neurological: Reports Dizzy
Endocrine: Reports No Symptoms
Hematologic/Lymphatic: Reports No Symptoms
Psych: Reports No Symptoms
Physical Exam
Vital Signs
Vital Signs
Temp Pulse Resp BP Pulse Ox
98.0 F 128 19 100/71 99
07/24/24 16:05 07/24/24 16:05 07/24/24 16:05 07/24/24 16:05 07/24/24 16:05
Physical Exam
General: Well Developed, Well Nourished and No Apparent Distress
HEENT: NormoCephalic, Moist mucous membranes and Atraumatic
Respiratory: Clear
Cardiac: Irregular Rhythm and Tachycardia; No Murmur or Rub
GI: Soft, Non Tender, Non Distended and Normal Bowel Sounds; No Organomegaly
Rectal: Deferred by Provider
Musculoskeletal: No Clubbing, No Cyanosis and No Edema
Skin: No Rash
Neuro: AO x 3 and Nonfocal/grossly intact
Psych: Calm
Laboratory Results
-
07/24/24 11:29
07/24/24 11:28
Laboratory Results
Total Bilirubin 1.1 mg/dl (0.2-1.3) 07/24/24 11:28
AST 18 U/L (14-36) 07/24/24 11:28
ALT 13 U/L (0-35) 07/24/24 11:28
Alkaline Phosphatase 36 U/L (38-126) L 07/24/24 11:28
Data Reviewed
-
Diagnostic Radiology: Report Reviewed by me
Lab Data: Labs Reviewed by me
Impression/Plan
-
# A-fib with RVR
- Cardioversion unsuccessful in the ER
- IV fluids in the ER
- EKG A-fib with RVR
- Fluids continued
- Eliquis continued
-Metoprolol continued
- Cardiology consulted
#right buttocks pain with weakness likely gluteal strain
-PT/OT consulted
-ice pack prn
-Flexeril and Tylenol prn for pain
# anemia likely iron deficiency
- Hemoglobin 11.8
- Will obtain iron panel with ferritin folate and TIBC
- CBC in a.m.
# Hypotension
# History of hypertension
- Improving with fluids
- Hold losartan due to hypotension
# DVT prophylaxis
- Eliquis
#CODE STATUS
- Full code
--- NOTE | 2024-07-24 16:43 | CON.CAR ---
Addendum entered and electronically signed by Mauricio Rocha MD 07/24/24 17:57:
83 yo female with PMH of paroxysmal Afib on eliquis, RBBB presented to ED for A fib with RVR. She felt dizzy, BP was low. We were consulted to help manage A fib.
We discussed using IV amiodarone to manage. However, by time of consult, patient was back in sinus.
Exam with RRR, no murmurs, no edema. Tele: A fib > NSR.
Paroxysmal A FIB. Back in sinus. Continue home metoprolol and eliquis.
RBBB. Chronic, stable on EKG.
Original Note:
Consultation
Consultation Request
Date/Time Consultation Requested: 07/24/24 1638
Date/Time Consultation Performed: 07/24/24 1640
Requesting Provider: Dr. Nakia Fraser
Performing Provider: Carrie STRONG for Dr. Rocha
Reason for Consultation: AFIB
Medical History
-
Chief Complaint: AFIB
History of Present Illness:
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 Briefly, Wednesday night her was about to fall and in assisting with this, she hurt her left gluteal
region, which has been causing her pain ever since. This AM, she woke up feeling dizzy and her HR on her watch was >120 BPM. She went to the medical center at [facility] ([facility]dependent living) to be assessed regarding her gluteal pain and was told
to come to the hospital. She was seen to be in Afib with RVR. BP was low and fluids given and she was cardioverted unsuccessfully in ER. At the time of my assessment, she is feeling fine. She has had PAF for many years and it is usually brought on
by other issues, such as pain. During my assessment, she is briefly going into SR and then back to AFIB with RVR. Of note, she does report subjective fever and chills last night, which has since resolved.
Past Medical History
Past Medical History: Arrhythmias, HTN, Hypercholesterolemia and Other (as above)
Social History
Tobacco: Non-Smoker
Family History
Family History: Reviewed & Not Pertinent
Allergies / Home Medications
Allergy/AdvReac Type Severity Reaction Status Date / Time
No Known Allergies Allergy Verified 07/24/24 11:11
�Medication �Instructions �Recorded �Confirmed �Type
apixaban 5 mg tablet (Eliquis) 5 mg PO BID Blood Clot 11/25/23 11/25/23 History
Prevention/Tx
cholecalciferol (vitamin D3) 50 50 mcg PO DAILY Supplement 11/25/23 11/25/23 History
mcg (2,000 unit) tablet (Vitamin
D3)
losartan 100 mg tablet 100 mg PO DAILY HIGH BLOOD 11/25/23 11/25/23 History
metoprolol succinate 100 mg 100 mg PO HS Heart 11/25/23 11/25/23 History
tablet,extended release 24 hr Disease/Condition
polyethylene glycol 3350 17 gram 8.5 g PO DAILYPRN PRN constipation 11/25/23 11/25/23 History
oral powder packet (Miralax)
rosuvastatin 10 mg tablet 10 mg PO HS High Cholesterol 11/25/23 11/25/23 History
trazodone 50 mg tablet 50 mg PO HS Sleep 11/25/23 11/25/23 History
Review of Systems
-
History Source: Patient
All other systems: Negative unless noted
Constitutional: Fever (subjective) and Chills
Neurological: Dizzy
Physical Exam
Vital Signs
Temp Pulse Resp BP Pulse Ox
98.0 F 128 19 100/71 99
07/24/24 16:05 07/24/24 16:05 07/24/24 16:05 07/24/24 16:05 07/24/24 16:05
Lab Results
07/24/24 11:29
07/24/24 11:28
Physical Exam
General: Well Developed, Well Nourished and No Apparent Distress
HEENT: Normocephalic and Anicteric
Respiratory: Clear and Non Labored Respirations
Cardiac: Irregular Rhythm
Musculoskeletal: No Edema
Skin: Warm and Dry
Neuro: AO x 3
Psych: Calm
Impression / Plan
-
AFIB with RVR:
-CV unsuccessful in ER. BP on low end as noted.
-will start IV amiodarone, which requires intensive monitoring
-continue Eliquis for OAC- she has been compliant and has missed no doses in the past month
-possibly pain as trigger
L gluteal pain:
-w/u and management per primary
RBBB:
-chronic, stable
HTN:
-BP low on arrival, improved now
-hold ARB
HLD:
-statin
Fever/chills episode:
-resolved, no fever or wbc count here, w/u per primary if appropropriate
Data Reviewed
-
EKG: Tracing Personally Visualized and interpreted (AFIB with RVR, RBBB)
Medical Tests (Nuc Med, Echo etc): Report Reviewed by me (Echo 11/26/23: Normal left ventricular size, wall thickness and systolic function. LV ejection fraction is 60-65% . Mild aortic regurgitation.)
Labs: Labs Reviewed by me
--- NOTE | 2024-07-24 17:17 | W.PN.UPDATE ---
Update Note
Progress Note Update
This is an addendum to H&P written by Dee Dee Knapp on 07/24/2024. Patient seen and examined independently with MOVER.
83-year-old female past medical history of paroxysmal atrial fibrillation on Eliquis, osteoporosis, hyperlipidemia, prediabetes, presented with pop in the left buttock area 3 days ago for which she came to [facility]. She had chills and
shakes last night which resolved. This morning she felt lightheaded and was noted to be in A-fib. At Medical Center today she had low blood pressure with dizziness and came to emergency room. No chest pain or shortness of breath.
Blood pressure initially 90s. Heart rate initially 132. Patient with atrial fibrillation with RVR. EKG showed atrial fibrillation heart rate 132.
On examination patient has tenderness in the left gluteal region without involvement of pain or tenderness in the spine lower extremity.
Labs unremarkable.
Cardioversion was attempted but unsuccessful. IV fluids being given, heart rate improved to 77 with blood pressure still 90s. Cardiology consulted. Hold losartan.
Possibly patient had left gluteus muscle strain versus tear. Examination of butt looks normal without erythema, bruising or swelling. Tylenol, Flexeril for pain. PT.
== END 2024-07-24 18:19 | disposition home or self-care (01) ==
LOC: EMR 11:01
PROVIDERS: Student in an Organized Health Care Education/Training Program; CONSULT PHYSICIAN Internal Medicine; EMERGENCY PHYSICIAN Emergency Medicine; FAMILY PHYSICIAN Internal Medicine Geriatric Medicine
DX: I48.91 Unspecified atrial fibrillation (principal); I45.10 Unspecified right bundle-branch block; E78.00 Pure hypercholesterolemia, unspecified; I10 Essential (primary) hypertension; Z79.01 Long term (current) use of anticoagulants
CPT/HCPCS: 92960; 99152; 99285; 96360; 80053; 83735; 84443; 85025; 93005